=== PATIENT | female | born 1995 | race Caucasian/White ===

== ENCOUNTER → 2017-01-19 | Outpatient (CLI) | payer OTHER ==
--- NOTE | 2017-01-19 12:43 | REP ---
Obstetric sonography: History: Supervision of for anatomy. Findings: Scanning through the gravid uterus demonstrates a viable single intrauterine gestation in a variable lie. motion is observed and heart rate is recorded at 160 beats per minute. A posterior placenta is seen, grade 0 without evidence of previa or abruption. Amniotic fluid is subjectively normal. Closed cervical length 3.4 cm, measured transabdominally. No extrauterine abnormalities observed. No anomaly is seen. spine and right ventricular cardiac outflow tract views are less than optimally seen due to position. The following additional anatomic structures are identified and felt to be sonographically unremarkable: cranium, choroid plexus, cavum, cerebellum and posterior fossa, face and profile, lungs, four-chamber heart with left ventricular outflow tract view, diaphragm, left-sided stomach, abdominal wall cord insertion, three-vessel umbilical cord, kidneys and bladder, upper and lower extremities. Biometry chart: BPD 4.2 cm = 18 weeks 6 days Head circumference 16.4 cm = 19 weeks 1 day Abdominal circumference 14.0 cm = 19 weeks 2 days Femur length 3.0 cm = 19 weeks 2 days Humeral length 3.1 cm = 20 weeks 2 days HC/AC ratio normal 1.17. Cephalic index normal 0.7. Estimated weight 282 grams, 0 pounds 9 ounces, 57th percentile for 19 weeks 0 days. Impression: Viable single intrauterine gestation of 19 weeks 2 days by today's composite sonographic criteria. KHANG by today's sonography June 13, 2017. Right ventricular cardiac outflow tract and spine visualization are less than optimal due to lie. No other abnormality is seen. Signed by Dominick Pearson MD 01/19/2017 01:26 P
== END ==
LOC: M RAD 09:37
PROVIDERS: ATTEND Advanced Practice Midwife
DX: Z34.80 Encounter for supervision of other normal pregnancy, unspecified trimester (principal)

== ENCOUNTER → 2017-02-11 | Outpatient (CLI) | payer OTHER ==
--- NOTE | 2017-02-11 12:03 | REP ---
Obstetric ultrasound for anatomy: There is a single intrauterine gestation in a breech presentation. There is motion and cardiac activity, the heart rate is 140 beats per minute. The placenta is posterior. There is no placenta previa or abruptio. Placenta is grade zero. The amniotic fluid volume subjectively is normal. The cervix measures 4.3 cm length. By today's measurements the gestational age is 22 weeks 0 days with an KHANG of 06/17/2017. Gestational age by the first ultrasound is 22 weeks 4 days. Gestational age by LMP is 22 weeks 2 days. The weight is for and 54 grams (1 pound, 0 ounces). This is the 31st percentile for 22 weeks 2 days. The following anatomic structures are identified and are unremarkable: Intracranial lateral ventricles, choroid plexus, cerebellum, cisterna magna, cerebellum, upper lip, facial profile, lungs, four-chamber heart, cardiac left ventricular outflow tract, diaphragm, stomach, cord insertion, three-vessel cord, kidneys, bladder, spine and upper lower extremities. Suboptimally demonstrated because of position and maternal body habitus is the right ventricular outflow tract. A followup study dedicated to this structure might be considered. Otherwise, there are no anomalies Signed by Jethro Brady MD 02/11/2017 11:54 A
== END ==
LOC: M RAD 09:32
PROVIDERS: ATTEND Obstetrics & Gynecology
DX: Z36.2 Encounter for other antenatal screening follow-up (principal)

== ENCOUNTER → 2017-03-31 | Outpatient (REF) | payer OTHER | LOC: M LAB REF 18:01 | PROVIDERS: ATTEND Advanced Practice Midwife | DX: Z34.82 Encounter for supervision of other normal pregnancy, second trimester (principal) ==

== ENCOUNTER → 2017-05-17 | Outpatient (REF) | payer OTHER | LOC: M LAB REF 13:08 | DX: O10.013 Pre-existing essential hypertension complicating pregnancy, third trimester (principal) ==

== ENCOUNTER 2017-05-31 11:32 | Inpatient (IN) | payer OTHER ==
[2017-05-31] MEDS: LR 1,000 ML IV ×2 (12:31→22:41)
[2017-05-31 12:43] LABS: HEMATOCRIT 35.3 % (36.0-47.0); HEMOGLOBIN 11.7 g/dl (12.0-16.0); MEAN CORPUSCULAR HEMOGLOBIN 27.9 pg (27.0-33.0); MEAN CORPUSCULAR HGB CONC 33.1 g/dl (32.0-36.5); MEAN CORPUSCULAR VOLUME 84.2 fl (80.0-96.0); PLATELET COUNT, AUTOMATED 254 10^3/uL (150-450); RED BLOOD COUNT 4.19 10^6/uL (4.00-5.40); RED CELL DISTRIBUTION WIDTH 15.2 % (11.5-14.5); WHITE BLOOD COUNT 12.5 10^3/uL (4.0-10.0)
[2017-05-31 14:00] LABS: ALT/SGPT 37 U/L (12-78); AST/SGOT 16 U/L (7-37); BILIRUBIN,TOTAL 0.4 MG/DL (0.2-1.0); CREATININE FOR GFR 0.34 MG/DL (0.55-1.30); GLOMERULAR FILTRATION RATE > 60.0 (>60); LDH LACTATE DEHYDROGENASE 175 U/L (84-246)
[2017-05-31] MEDS: miSOPROStol 50 MCG 1/2 TAB (S0191) SL ×3 (14:22→22:41)
[2017-05-31] MEDS: ACETAMINOPHEN 500 MG TAB PO (16:46)
[2017-05-31] MEDS: PSEUDOEPHEDRINE 30 MG TAB PO (17:13)
[2017-05-31] MEDS: guaiFENesin 200 MG TAB PO (17:14)
[2017-05-31] MEDS: LACTATED RINGER'S 1000 ML IV (18:50)
[2017-06-01] MEDS: miSOPROStol 50 MCG 1/2 TAB (S0191) SL ×2 (03:19→07:44)
[2017-06-01] MEDS: miSOPROStol 50 MCG 1/2 TAB (S0191) PO (08:01)
[2017-06-01] MEDS: guaiFENesin 200 MG TAB PO (10:21)
[2017-06-01] MEDS: BUTORPHANOL 2 MG/ML INJ (J0595) IV (11:44)
[2017-06-01] MEDS: LR 1,000 ML IV ×2 (12:03→20:02)
[2017-06-01 13:21] LABS: HBSAG L&D NEGATIVE (NEGATIVE)
[2017-06-01] MEDS: ALBUTEROL SULFATE 2.5 MG/0.5 ML INH NEB SOLN NEB ×2 (14:07→21:05)
[2017-06-01] MEDS: miSOPROStol 100 MCG TAB (S0191) PO (14:39)
[2017-06-01] MEDS: PSEUDOEPHEDRINE 30 MG TAB PO (16:00)
[2017-06-01] MEDS: ACETAMINOPHEN 500 MG TAB PO (16:01)
[2017-06-01] MEDS: SODIUM CHLORIDE NASAL 0.65% SPRAY BTL (OCEAN) (18:26)
[2017-06-01] MEDS ORDERED: LR 1,000 ML IV (18:31)
[2017-06-01] MEDS: OXYTOCIN DRIP 30 UNITS in APPROPRIATE DILUENT 1 EA IV (18:59)
[2017-06-01] MEDS ORDERED: FENTANYL 2MCG/ML ROPIVACAINE 0.2% IN 0.9% NACL 200ML IVBAG As Ordered (19:15)
[2017-06-01] MEDS ORDERED: FENTANYL/ROPIVACAINE/NACL BAG 200 ML EPIDURAL (21:30)
[2017-06-01] MEDS ORDERED: NALOXONE INJ 0.4 MG/1 ML VIAL (J2310) IV (21:30)
[2017-06-01] MEDS ORDERED: REFRIGERATOR IV KEYS XX (21:30)
[2017-06-01] MEDS ORDERED: EPIDURAL COMMENT XX (21:30)
[2017-06-01] MEDS ORDERED: ePHEDrine SULFATE 25 MG/5 ML(5MG/ML) SYRINGE IV (21:30)
[2017-06-01] MEDS ORDERED: EPIDURAL/PCA KEYS XX (21:30)
[2017-06-01] MEDS ORDERED: diphenhydrAMINE INJ 50MG/ML VIAL (J1200) IV (21:30)
[2017-06-01] MEDS: ONDANSETRON 4MG/2ML VIAL (J2405) IV (21:34)
[2017-06-02] MEDS ORDERED: ONDANSETRON 4MG/2ML VIAL (J2405) IV (06:45)
[2017-06-02] MEDS ORDERED: ANUSOL HC CREAM 30GM TOP (06:45)
[2017-06-02] MEDS ORDERED: MEASLES,MUMPS,RUBELLA VACCINE INJ (MMR-II) (90707) SC (06:45)
[2017-06-02] MEDS ORDERED: RHOGAM 300 MCG (1500 IU) INJ (J2790) IM (06:45)
[2017-06-02] MEDS ORDERED: METHYLERGONOVINE MALEATE 0.2 MG TAB PO (06:45)
[2017-06-02] MEDS ORDERED: MOM 30ML SUSPENSION UDC PO (06:45)
[2017-06-02] MEDS ORDERED: ACETAMINOPHEN 500 MG TAB PO (06:45)
[2017-06-02] MEDS: ALBUTEROL SULFATE 2.5 MG/0.5 ML INH NEB SOLN NEB (08:02)
[2017-06-02] MEDS: IBUPROFEN 800 MG TAB PO ×2 (09:23→21:45)
[2017-06-02] MEDS: PRENATAL VITAMINS CHEWABLE TABLET PO (09:23)
[2017-06-02] MEDS: OXYTOCIN DRIP 30 UNITS in APPROPRIATE DILUENT 1 EA IV (10:09)
[2017-06-02] MEDS: DOCUSATE SODIUM 100 MG CAP PO (21:45)
[2017-06-02] MEDS: DIBUCAINE 1% OINTMENT 30GM TOP (22:00)
[2017-06-03] MEDS: PRENATAL VITAMINS CHEWABLE TABLET PO (07:46)
[2017-06-03] MEDS: IBUPROFEN 800 MG TAB PO ×2 (07:47→20:53)
[2017-06-03] MEDS: DOCUSATE SODIUM 100 MG CAP PO (20:53)
[2017-06-04] MEDS: IBUPROFEN 800 MG TAB PO (08:28)
[2017-06-04] MEDS: PRENATAL VITAMINS CHEWABLE TABLET PO (08:28)
== END 2017-06-04 17:54 | disposition home or self-care (01) | DRG 560 ==
LOC: M LDI 11:32 → M OBS 06-02 08:38
PROC: 3E0DXGC Introduction of Other Therapeutic Substance into Mouth and Pharynx, External Approach (ICD-10-PCS; principal; 2017-05-31)
PROC: 0KQM0ZZ Repair Perineum Muscle, Open Approach (ICD-10-PCS; 2017-06-02)
PROC: 10E0XZZ Delivery of Products of Conception, External Approach (ICD-10-PCS; 2017-06-02)
DX: O10.02 Pre-existing essential hypertension complicating childbirth (principal); J45.901 Unspecified asthma with (acute) exacerbation; Z37.0 Single live birth; Z3A.37 37 weeks gestation of pregnancy; Z88.5 Allergy status to narcotic agent; Z79.899 Other long term (current) drug therapy; O70.1 Second degree perineal laceration during delivery; O99.52 Diseases of the respiratory system complicating childbirth; J45.909 Unspecified asthma, uncomplicated

== ENCOUNTER 2018-03-07 09:11 | Emergency (ER) | payer OTHER ==
[2018-03-07 10:01] LABS: BASO # 0.1 10^3/uL (0.0-0.2); BASO % 0.3 % (0.0-1.0); EOS # 0.2 10^3/uL (0.0-0.50); EOS % 1.4 % (0.0-3.0); HEMATOCRIT 42.9 % (36.0-47.0); HEMOGLOBIN 14.3 g/dl (12.0-15.5); IMMATURE GRANULOCYTE % 0.4 % (0-3.0); LYMPH # 1.5 10^3/uL (1.5-6.5); LYMPH % 10.6 % (24.0-44.0); MEAN CORPUSCULAR HEMOGLOBIN 29.9 pg (27.0-33.0); MEAN CORPUSCULAR HGB CONC 33.3 g/dl (32.0-36.5); MEAN CORPUSCULAR VOLUME 89.6 fl (80.0-96.0); MONO # 0.8 10^3/uL (0.0-0.8); MONO % 5.4 % (0.0-5.0); NEUTROPHILS # 11.9 10^3/uL (1.8-7.7); NEUTROPHILS % 81.9 % (36.0-66.0); PLATELET COUNT, AUTOMATED 321 10^3/uL (150-450); RED BLOOD COUNT 4.79 10^6/uL (4.00-5.40); RED CELL DISTRIBUTION WIDTH 12.8 % (11.5-14.5); WHITE BLOOD COUNT 14.5 10^3/uL (4.0-10.0)
[2018-03-07 10:06] LABS: KETONE, URINE AUTO RFX TRACE mg/dL (NEGATIVE); LEUKOCYTE ESTERASE UR AUTO RFX NEGATIVE (NEGATIVE); NITRITE, URINE AUTO RFX NEGATIVE (NEGATIVE); RBC, URINE AUTO RFX 2 /HPF (0-3); SPECIFIC GRAVITY UR AUTO RFX 1.002 (1.002-1.035); SQUAM EPITHELIAL CELL UR AURFX 1 /HPF (0-6); WBC, URINE AUTO RFX 2 /HPF (0-3)
[2018-03-07 10:34] LABS: HCG, SERUM QUANTITATIVE 392 MIU/ML
[2018-03-07 11:50] LABS: CHLAMYDIA DNA AMPLIFICATION NEGATIVE (NEGATIVE); GC DNA AMPLIFICATION NEGATIVE (NEGATIVE)
== END 2018-03-07 12:51 | disposition home or self-care (01) ==
LOC: M ED 09:11
DX: O20.9 Hemorrhage in early pregnancy, unspecified (principal); O99.511 Diseases of the respiratory system complicating pregnancy, first trimester; J45.909 Unspecified asthma, uncomplicated; Z88.5 Allergy status to narcotic agent; Z91.010 Allergy to peanuts; Z79.899 Other long term (current) drug therapy; Z79.51 Long term (current) use of inhaled steroids; Z3A.08 8 weeks gestation of pregnancy
CPT/HCPCS: 76801

== ENCOUNTER → 2018-11-16 | Outpatient (REF) | payer BC ==
[~2018-11-16] MED LIST: ACET500T15 PO; ADV100INH INH; ALBU83IN NEB; IBUP-1114 PO; LEVAINH INH; MAPA500T2 PO; MUCILIQ5 PO; PRENTAB9 PO; TUMS500C PO; ZYRT10CA PO
== END ==
LOC: M LAB REF 12:53
PROVIDERS: ATTEND Advanced Practice Midwife
DX: O10.013 Pre-existing essential hypertension complicating pregnancy, third trimester (principal)

== ENCOUNTER 2018-12-09 03:47 | Inpatient (IN) | payer BC ==
[2018-12-09] VITALS (31 sets, daily range): BP systolic 90–147; BP diastolic 51–94
[~2018-12-09] VITALS: Ht 160 cm; Wt 102.9 kg
[2018-12-09] MEDS ORDERED: miSOPROStol 50 MCG 1/2 TAB (S0191) PO ONE (04:30)
[2018-12-09 05:32] LABS: HEMATOCRIT 38.4 % (36.0-47.0); HEMOGLOBIN 12.8 g/dl (12.0-15.5); MEAN CORPUSCULAR HGB CONC 33.3 g/dl (32.0-36.5); MEAN CORPUSCULAR VOLUME 87.1 fl (80.0-96.0); PLATELET COUNT, AUTOMATED 271 10^3/uL (150-450); RED BLOOD COUNT 4.41 10^6/uL (4.00-5.40); WHITE BLOOD COUNT 14.2 10^3/uL (4.0-10.0)
[2018-12-09] MEDS ORDERED: FENTANYL 2MCG/ML ROPIVACAINE 0.2% IN 0.9% NACL 100ML IVBAG As Ordered ONE (07:06)
[2018-12-09] MEDS: ePHEDrine SULFATE 25 MG/5 ML(5MG/ML) SYRINGE IV PRN ×3 (08:56→09:04)
[2018-12-09] MEDS ORDERED: EPIDURAL COMMENT XX SCH (09:00)
[2018-12-09] MEDS ORDERED: EPIDURAL/PCA KEYS XX PRN (09:00)
[2018-12-09] MEDS ORDERED: REFRIGERATOR IV KEYS XX PRN (09:00)
[2018-12-09] MEDS ORDERED: diphenhydrAMINE INJ 50MG/ML VIAL (J1200) IV PRN (09:00)
[2018-12-09] MEDS ORDERED: ONDANSETRON 4MG/2ML VIAL (J2405) IV PRN ×2 (09:00→10:00)
[2018-12-09] MEDS ORDERED: FENTANYL/ROPIVACAINE/NACL BAG 100 ML EPIDURAL SCH (09:00)
[2018-12-09] MEDS ORDERED: LACTATED RINGER'S 1000 ML IV PRN (09:00)
[2018-12-09] MEDS ORDERED: NALOXONE INJ 0.4 MG/1 ML VIAL (J2310) IV PRN (09:00)
[2018-12-09] MEDS ORDERED: OXYTOCIN 30 UNITS IN 0.9% NaCl 500ML IV BAG (J2590) As Ordered ONE (09:31)
--- NOTE | 2018-12-09 09:33 | HPE ---
DATE OF ADMISSION: 12/09/2018 HISTORY OF PRESENT ILLNESS (HPI): Patient is a 23-year-old female who is a 3, para 1-0-1-1, at 39 weeks and 4 days gestation. She initiated care in her first trimester. Her has been complicated by a history of chronic hypertension, which she did not need any medications for during her ., and asthma, which was controlled throughout her . She presents to labor and delivery with complaints of spontaneous rupture of clear fluid 12/08 at 2300. She reports feeling contractions once an hour. She reports active movement and denies vaginal bleeding. PAST PREGNANCIES: May 2017 at 38.1 weeks gestation, she delivered a female by vaginal delivery weighing 7 pounds 6 ounces, complicated by chronic hypertension. February 2018, she had a 6 week spontaneous miscarriage. PAST MEDICAL HISTORY: Chronic hypertension, anxiety and panic attacks. SURGICAL HISTORY: Jaw surgery in 2019. FAMILY HISTORY: Diabetes and hypertension. SOCIAL HISTORY: Patient has no history of tobacco use. She denies any history of alcohol or illicit drug use prior to or during . She denies any history of any sexually transmitted infections. She is and lives with the father of baby. LABS: Blood type is O positive. Antibody screen is negative. Hemoglobin and hematocrit 13.0 and 37.9. She is immune to rubella. VDRL is nonreactive. Urine had no growth. Hepatitis B surface antigen is negative. HIV is negative. Hepatitis C is nonreactive. Gonorrhea and chlamydia are both negative. Her early urine random protein/creatinine ratio was within normal limits. She declined genetic testing. Her 1-hour glucose tolerance test was 92 with a hemoglobin and hematocrit of 12.1 and 35.1 with platelets of 225. Her HIV in her third trimester was negative, and her group B Streptococcus (GBS) is negative. heart rate is 135 beats per minute, moderate variability, positive accelerations, no decelerations. Contractions are every 2-6 minutes. Patient reports she barely feels contractions. STERILE VAGINAL EXAM: 3 cm dilated, 75% effaced, -2 station, and grossly ruptured. VITAL SIGNS: 119/61 for blood pressure, heart rate 94, respiratory rate 16, temperature is 98.5. PHYSICAL ASSESSMENT: GENERAL: Alert and oriented times three. RESPIRATORY: Regular rate with no use of accessory muscles. ABDOMEN: Gravid. Cephalic presentation noted through vaginal exam and Ambrosio. LOWER EXTREMITIES: Generalized edema, slightly pitting without clonus. ASSESSMENT: Intrauterine (IUP) at 39.4 weeks gestation, spontaneous rupture of membranes, negative group B Streptococcus (GBS), category 1 heart rate tracing. PLAN: Admit patient to labor and delivery. Out of bed ad blanca. Regular diet until intravenous (IV) Pitocin is started, then clear liquid diet. Saline lock to be started and labs per unit protocol. Cytotec ordered for one dose and then IV Pitocin to be ordered. Anticipate cervical ripening and cervical change with vaginal delivery. Anesthesia consult per patient's request. MTDD
[2018-12-09] MEDS ORDERED: LR 1,000 ML IV SCH (09:50)
[2018-12-09] MEDS ORDERED: PROMETHAZINE 25 MG TAB PO PRN (10:00)
[2018-12-09] MEDS ORDERED: RHOGAM 300 MCG (1500 IU) INJ (J2790) IM SCH (10:00)
[2018-12-09] MEDS ORDERED: DOCUSATE SODIUM 100 MG CAP PO PRN (10:00)
[2018-12-09] MEDS ORDERED: ACETAMINOPHEN TAB 650MG DOSE (2X325MG) PO PRN (10:00)
[2018-12-09] MEDS ORDERED: MEASLES,MUMPS,RUBELLA VACCINE INJ (MMR-II) (90707) SC SCH (10:00)
[2018-12-09] MEDS ORDERED: DIBUCAINE 1% OINTMENT 30GM TOP PRN (10:00)
[2018-12-09] MEDS ORDERED: IBUPROFEN 600 MG TAB PO PRN (10:00)
[2018-12-09] MEDS ORDERED: ACETAMINOPHEN 500 MG TAB PO PRN (10:00)
[2018-12-09] MEDS ORDERED: OXYTOCIN DRIP 30 UNITS in APPROPRIATE DILUENT 1 EA IV SCH (10:30)
[2018-12-09] MEDS ORDERED: SLF 3 ML SYR IV PRN (10:45)
[2018-12-09] MEDS: SLF 3 ML SYR IV SCH ×2 (14:00→21:56)
[2018-12-09] MEDS: IBUPROFEN 800 MG TAB PO PRN (19:47)
[2018-12-10 06:00] VITALS: BP 117/60
[2018-12-10] MEDS: SLF 3 ML SYR IV SCH ×2 (06:00→12:46)
[2018-12-10] MEDS: IBUPROFEN 800 MG TAB PO PRN (08:43)
[2018-12-10] MEDS ORDERED: PRENATAL VITAMINS CHEWABLE TABLET PO SCH (09:00)
== END 2018-12-10 16:30 | disposition home or self-care (01) | DRG 560 ==
LOC: M LDI 03:47 → M OBS 12:32
PROVIDERS: ADMIT Advanced Practice Midwife; ATTEND Obstetrics & Gynecology
PROC: 10E0XZZ Delivery of Products of Conception, External Approach (ICD-10-PCS; principal; 2018-12-09)
PROC: 0HQ9XZZ Repair Perineum Skin, External Approach (ICD-10-PCS; 2018-12-09)
DX: O10.02 Pre-existing essential hypertension complicating childbirth (principal); O70.0 First degree perineal laceration during delivery; Z3A.39 39 weeks gestation of pregnancy; Z37.0 Single live birth

== ENCOUNTER → 2019-05-09 | Outpatient (REF) | payer BC ==
[2019-05-10 13:42] LABS: CHLAMYDIA DNA AMPLIFICATION NEGATIVE (NEGATIVE); GC DNA AMPLIFICATION NEGATIVE (NEGATIVE)
== END ==
LOC: M SFHCWAGY 10:01
PROVIDERS: ATTEND Obstetrics & Gynecology
DX: Z12.4 Encounter for screening for malignant neoplasm of cervix (principal)
CPT/HCPCS: 87661; G0123

== ENCOUNTER → 2019-07-18 | Outpatient (REF) | payer BC | LOC: M SFHCWAGY 12:56 | PROVIDERS: ATTEND Obstetrics & Gynecology | DX: N76.4 Abscess of vulva (principal) ==

== ENCOUNTER → 2020-01-23 | Outpatient (REF) | payer BC | LOC: M SFHCWAGY 13:11 | PROVIDERS: ATTEND Advanced Practice Midwife | DX: O99.213 Obesity complicating pregnancy, third trimester (principal) ==

== ENCOUNTER 2020-02-23 01:08 | Inpatient (IN) | payer BC ==
[2020-02-23] VITALS (7 sets, daily range): BP systolic 111–138; BP diastolic 54–77
[~2020-02-23] VITALS: Ht 160 cm; Wt 115.2 kg
--- NOTE | 2020-02-23 01:57 | IPNPDOC ---
Text Note Date of Service The patient was seen on 02/23/20. NOTE Outpatient Subjective: Feli is a 25 y/o at 40.0wks (KHANG 02/23/20) who presents to L&D today for contractions after having her membranes swept in the office. She reports contractions at home every 5 minutes and painful. Started to decrease in frequency on her way to the hospital. Denies LOF, vaginal bleeding. Reports good movement. Objective: SVE 3/50/-2, posterior, soft by ANENTTE Matson with informed consent. Unchanged from the office. FHR 145 baseline, moderate variability, positive accelerations, positive early deceleration, cat 1 tracing UC 4-7 min, lasting 60-90 seconds on [place]. Assessment: Early labor Plan: Recheck in 1-2 hours for cervical change, intermittent monitoring, frequent position changes/walking per patient desire. Makeda Aviles CNM Feb 23, 2020 01:56
[2020-02-23] MEDS ORDERED: LACTATED RINGER'S 1000 ML IV STA (02:36)
[2020-02-23 02:56] LABS: HEMATOCRIT 39.9 % (36.0-47.0); HEMOGLOBIN 12.7 g/dl (12.0-15.5); MEAN CORPUSCULAR HEMOGLOBIN 26.7 pg (27.0-33.0); MEAN CORPUSCULAR HGB CONC 31.8 g/dl (32.0-36.5); MEAN CORPUSCULAR VOLUME 83.8 fl (80.0-96.0); PLATELET COUNT, AUTOMATED 271 10^3/uL (150-450); RED BLOOD COUNT 4.76 10^6/uL (4.00-5.40); WHITE BLOOD COUNT 15.9 10^3/uL (4.0-10.0)
[2020-02-23] MEDS ORDERED: OXYTOCIN 30 UNITS IN 0.9% NaCl 500ML IV BAG (J2590) As Ordered ONE (03:05)
--- NOTE | 2020-02-23 03:11 | HPEPDOC ---
Obstetrical History & Physical General Date of Admission 02/23/2020 History of Present Illness Chief Complaint: Active Labor Information Provided By: Patient Age: 25 : 4 Term: 2 Pre-term: 0 Abortions: 1 Livin Care Care: Good Care Dating Final EDC: Feb 23, 2020 Final EDC by: 1st trimester (US) 1st Trimester Date: Aug 06, 2019 Weeks + Days: 11.1 EGA at Admission: 40.0 Antepartum Course Diagnos(e)s Hx. of GHTN with 1st Height (inches): 63 Pre- weight (lbs.): 235 Admission Weight (lbs.): 254 Change in Weight (lbs.): 19 Past Medical History Past Obstetrical History #1: Past Obstetrical History: Primgravida Date of Delivery: Jun 02, 2017 Gestation: 38 Type of Delivery: Spontaneous Vaginal Del. Sex of Infant: Female (7#15oz.) Complications: Yes (GHTN) Past Obstetrical History #2: Past Obstetrical History: Multigravida Date of Delivery: Dec 09, 2018 Gestation: 39 Type of Delivery: Spontaneous Vaginal Del. Sex of Infant: Male (7#1oz) [employer] History: Spontaneous (x1 03/07/2018) Past Medical History Medical History Obesity, BMI 45 Asthma Anxiety and panic attacks Surgical History: Other (2010 Jaw surgery) Family History Significant Family History: Cancer (MGF Chronic Leukemia; Father Skin CA), Diabetes (PGM and MGM Type 2 ), Hypertension (Father), Other (Father- Glaucoma) Social History Marital Status: Family situation: Spouse/partner home Psychosocial History: Anxiety * Smoker: non-smoker Alcohol: Denies Drugs: denies Allergies Coded Allergies: NUTS (Verified Allergy, Severe, 02/23/20) Peanut (Verified Allergy, Severe, 05/31/17) codeine (Verified Allergy, Severe, 12/09/18) Medications Scheduled No.137/Iron/Folic Acd ( Vitamin Tablet) 1 Tab Tab, 1 TAB PO DAILY Scheduled PRN Acetaminophen (Mapap) 500 Mg Tab, 1,000 MG PO Q6HP PRN for PAIN SCALE 1-5 Physical Examination Physical Examination GENERAL: Alert and oriented times three. BREAST: . ABDOMEN: Gravid and non-tender to touch. FETUS: Is vertex (VTX) by sterile vaginal examination (SVE), fetus is vertex (VTX) by Ambrosio. EFW 8-8.5lbs by Nora. HEART RATE: Regular rate and rhythm. LUNGS: Clear to auscultation (CTA). EXTREMITIES: No edema. No clonus. Deep tendon reflexes (DTRs) + 2. Vital Signs/I&O Vital Signs Date Time Temp Pulse Resp B/P (MAP) Pulse Ox O2 Delivery O2 Flow Rate FiO2 02/23/20 01:29 97.7 109 18 129/72 (91) Pertinent Laboratoy Data Blood Type: O+ RBC Antibody Screen: Negative HIV: Negative Hepatitis B: Negative Rapid Plasma Reagin: Nonreactive Rubella: Immune Chlamydia/Gonorrhea: Negative Group B Streptococcus: Negative Glucose Tolerance Test: 100 Anatomy Ultrasound Ultrasound Date: Oct 08, 2019 Placenta Location: Posterior Normal Anatomy: Yes Placenta Previa: No Estimated Weight (grams): 346 Steroid Therapy Steroid Therapy: No Vaginal Examination Dilation: 5 cm Effacement: 80% Station: -2 Cervical Consistency: Soft Cervical Position: Middle Presentation: Cephalic presentation Assessment Heart Rate (FHR): 145 Variability: Moderate Accelerations: Positive Decelerations: None Tocometer Contractions: Yes Frequency: regular Duration: greater than 60 seconds Strength: palpated as moderate, resting tone palp/soft Multi-drug resistant Organism: No history of MDRO Assessment/Plan Assessment Edna is a 25-year-old (G)4 para (P)2-0-1-2 at 40+0 weeks by 11.1-week ultrasound on 08/06/19. History significant for a history of GHTN with first , VSS and normotensive currently. Presents to Labor and Delivery (L&D) with c/o regular contractions. She started olesya after being swept in the office today. She denies headache, visual changes, epigastric pain, nausea/vomiting. She reports good movement, denies LOF, vaginal bleeding. Plan Admit and orient to Labor and Delivery. Patient Account Specialist and consent. Diet: Clear liquids. Group B Streptococcus (GBS) negative. Labs and intravenous (IV) per unit protocol. Plans for epidural for labor pain management. Lactated Ringers (LR): Bolus 500 mL, then at 125 mL/hr. Anticipate normal spontaneous delivery (). C-S as appropriate. Makeda Aviles Feb 23, 2020 02:59
[2020-02-23] MEDS ORDERED: OXYTOCIN DRIP 30 UNITS in IV 1 EA IV SCH (03:58)
[2020-02-23] MEDS ORDERED: MEASLES,MUMPS,RUBELLA VACCINE INJ (MMR-II) (90707) SC SCH (04:00)
[2020-02-23] MEDS ORDERED: ACETAMINOPHEN 500 MG TAB PO PRN (04:00)
[2020-02-23] MEDS ORDERED: IBUPROFEN 800 MG TAB PO PRN (04:00)
[2020-02-23] MEDS ORDERED: DIBUCAINE 1% OINTMENT 30GM TOP PRN (04:00)
[2020-02-23] MEDS ORDERED: DOCUSATE SODIUM 100 MG CAP PO PRN (04:00)
[2020-02-23] MEDS ORDERED: MOM 30ML SUSPENSION UDC PO PRN (04:00)
[2020-02-23] MEDS ORDERED: RHOGAM 300 MCG (1500 IU) INJ (J2790) IM SCH (04:00)
[2020-02-23] MEDS ORDERED: METHYLERGONOVINE MALEATE 0.2 MG TAB PO PRN (04:00)
[2020-02-23] MEDS ORDERED: ANUSOL HC CREAM 30GM TOP PRN (04:00)
[2020-02-23] MEDS ORDERED: IBUPROFEN 600MG TAB PO PRN (04:00)
[2020-02-23] MEDS ORDERED: ACETAMINOPHEN TAB 650MG DOSE (2X325MG) PO PRN (04:00)
--- NOTE | 2020-02-23 04:02 | DNPDOC ---
[facility] Delivery Note Delivery Note DATE OF DELIVERY: 02/23/20 @ 0327 PREDELIVERY DIAGNOSIS: 40-0/7 weeks' gestation and labor. POST DELIVERY DIAGNOSIS: Delivered. PROCEDURE: Spontaneous vaginal delivery. PROVIDER: SAYRA Ramirez/ ANNETTE Matson ANESTHESIA: None. ESTIMATED BLOOD LOSS: 150 mL. FINDINGS: 7 pound 8 ounce, 3410g Male infant, Score 8/9, precipitous delivery. DELIVERY SUMMARY: Feli is a 25-year-old 4 now para 3-0-1-3 who was admitted to labor and delivery for active labor that began at 0100. She progressed rapidly to full dilation at 0324. AROM for clear fluid at 0323. head delivered CARMEN with restitution to ROT, anterior shoulder delivered with ease and corpus following. Viable male infant placed skin to skin on maternal abdomen. Delayed cord clamping for first minute of life, cord clamped x2 and cut by FOB. Cord blood collected. Intact placenta delivered at 0332, trinh mechanism. Fundus massaged and IV Pitocin bolus started. Fundus firmed at Umbilicus with small flow. Vagina, cervix, and perineum examined, no lacerations found. Sharps and sponges counted and correct. Parents plan to name "Carolyn". Planning to breast and formula feed. Mother and left in stable condition. Makeda Aviles CNM Feb 23, 2020 03:42
[2020-02-23] MEDS: PRENATAL VITAMINS CHEWABLE TABLET PO SCH (10:10)
[2020-02-24 05:47] VITALS: BP 139/70
[2020-02-24] MEDS: PRENATAL VITAMINS CHEWABLE TABLET PO SCH (11:24)
== END 2020-02-24 18:18 | disposition home or self-care (01) | DRG 560 ==
LOC: M LDO 01:08 → M LDI 02:56 → M OBS 06:25
PROVIDERS: ADMIT Advanced Practice Midwife; ATTEND Advanced Practice Midwife
PROC: 10E0XZZ Delivery of Products of Conception, External Approach (ICD-10-PCS; principal; 2020-02-23)
PROC: 10907ZC Drainage of Amniotic Fluid, Therapeutic from Products of Conception, Via Natural or Artificial Opening (ICD-10-PCS; 2020-02-23)
DX: O62.3 Precipitate labor (principal); E66.9 Obesity, unspecified; Z3A.40 40 weeks gestation of pregnancy; Z37.0 Single live birth; O99.214 Obesity complicating childbirth